=== PATIENT | female | born 1970 | race American Indian/Alaskan Native ===

== ENCOUNTER 2018-02-28 19:19 | Emergency (ER) | payer BC, OTHER ==
[2018-02-28] MEDS ORDERED: NACL 0.9% 1000 ML 1,000 ML IV ONE (19:48)
[2018-02-28 20:11] LABS: Bilirubin,Urine NEG (Negative); Blood,Urine MOD (Negative); Color,Urine Yellow (Yellow); Mucus,Urine 1+ /HPF; Protein,Urine <15 mg/dL mg/dL (Negative); Urobilinogen,Urine < 2.0 mg/dL (<2.0)
[2018-02-28 20:35] LABS: Mean Corpuscular HGB Conc 29 % (30-34); Platelet Count 393 K/mm3 (140-440); Red Blood Count 4.44 M/mm3 (3.65-5.03)
[2018-02-28 20:44] LABS: Alanine Aminotransferase 7 units/L (7-56); Albumin 4.5 g/dL (3.9-5); BUN/Creatinine Ratio 6; Blood Urea Nitrogen 3 mg/dL (7-17); Calcium 8.7 mg/dL (8.4-10.2); Hemolysis Index 9
[2018-02-28 20:50] LABS: Hematocrit 28.5 % (30.3-42.9); Hemoglobin 8.2 gm/dl (10.1-14.3); Mean Corpuscular Volume 64 fl (79-97); Red Cell Distribution Width 22.2 % (13.2-15.2)
--- NOTE | 2018-02-28 21:25 | Emergency Department Report ---
HPI - General Chief Complaint: Abdominal Pain Time Seen by Provider: 02/28/18 21:00 - HPI HPI: 47-year-old -Al[place]ian female presents to the emergency department from home with complaint of some right sided flank and right upper quadrant abdominal pain and some occasional right-sided chest pain that has been going on for the past 5-6 days. She denies any fever, nausea, vomiting, constipation, dysuria, vaginal bleeding or discharge, shortness of breath. The patient tried some natural remedies and taking a bath in Epsom salt. Patient says that the pains are improved from when they first started but they are still there. She has a past medical history of G6PD, hypothyroidism, previous pericarditis, right-sided lumpectomy that was benign and the patient was previously diabetic and had a history of hypertension but she has lost about 100-150 pounds. She moved here from [place] about 7 months ago and does not have a local primary care physician. No recent travel or sick contacts at home. ED Past Medical Hx - Past Medical History Hx Hypertension: Yes Hx Diabetes: Yes Additional medical history: Hypothyroidism, Pericarditis, G6PD - Surgical History Additional Surgical History: Right Lumpectomy, D&C, C-sections X 3 - Social History Smoking Status: Current Some Day Smoker Substance Use Type: None ED Review of Systems ROS: Stated complaint: RT SIDE PAIN Other details as noted in HPI Comment: All other systems reviewed and negative Constitutional: denies: chills, fever Eyes: denies: eye pain, vision change ENT: denies: ear pain, throat pain Respiratory: denies: cough, shortness of breath Cardiovascular: chest pain. denies: palpitations Gastrointestinal: abdominal pain. denies: nausea, vomiting Genitourinary: denies: dysuria, discharge Musculoskeletal: denies: back pain, arthralgia Skin: denies: rash, lesions Neurological: denies: headache, weakness Physical Exam - Physical Exam Vital Signs: Vital Signs 02/28/18 02/28/18 19:24 19:38 Temperature 98.5 F 98.5 F Pulse Rate 69 69 Respiratory 18 16 Rate Blood Pressure 142/56 142/56 O2 Sat by Pulse 100 100 Oximetry Physical Exam: GENERAL: The patient is well-developed well-nourished. HEENT: Normocephalic. Atraumatic. Patient has moist mucous membranes. EYES: Extraocular motions are intact. Pupils are equal and reactive to light bilaterally. NECK: Supple. Trachea is midline. CHEST/LUNGS: Clear to auscultation. There is no respiratory distress noted. HEART/CARDIOVASCULAR: Regular. There is no tachycardia. There is no obvious murmur. ABDOMEN: Abdomen is soft. Unable to reproduce right upper quadrant abdominal pain or flank pain to palpation. No guarding. Patient has normal bowel sounds. There is no abdominal distention. SKIN: Skin is warm and dry. NEURO: The patient is awake, alert, and oriented. The patient is cooperative. The patient has no focal neurologic deficits. The patient has normal speech. MUSCULOSKELETAL: There is no tenderness or deformity. There is no limitation range of motion. There is no evidence of acute injury. ED Course Vital Signs 02/28/18 02/28/18 19:24 19:38 Temperature 98.5 F 98.5 F Pulse Rate 69 69 Respiratory 18 16 Rate Blood Pressure 142/56 142/56 O2 Sat by Pulse 100 100 Oximetry ED Medical Decision Making - Lab Data Result diagrams: 02/28/18 20:09 02/28/18 20:09 - EKG Data -: EKG Interpreted by Me EKG shows normal: sinus rhythm, axis, intervals, QRS complexes (Q waves to the septal leads), ST-T waves Rate: normal - EKG Data When compared to previous EKG there are: previous EKG unavailable Interpretation: other (sinus rhythm, normal intervals, normal axis, Q waves to the septal leads) - Radiology Data Radiology results: report reviewed, image reviewed interpreted by me: Chest x-ray does not show any pneumothorax, pleural effusion, pneumonia or obvious focal consolidation. Abdominal x-ray shows nonspecific nonobstructive bowel gas. EXAM: US ABDOMEN COMPLETE HISTORY: Right flank pain, RUQ abd pain COMPARISON: Acute abdominal series from the same date. TECHNIQUE: Several real-time grayscale and color Doppler images were obtained. FINDINGS: Homogeneous echogenicity the visualized portions of the liver and pancreas. No shadowing gallstones. No gallbladder wall thickening. The common bile duct measures 3 millimeters within normal limits. Visualized aorta is normal in caliber. The right kidney measures 11.4 centimeters in length. Left kidney 12.4 centimeters. No hydronephrosis. Spleen normal in size measuring 9.7 centimeters in length. Portal vein and IVC are not included on the study. IMPRESSION: No acute abdominal organ abnormality. Transcribed By: LMA Dictated By: ANNALEE CHRISTENSEN MD Electronically Authenticated By: ANNALEE CHRISTENSEN MD Signed Date/Time: 02/28/18 2161 - Medical Decision Making The patient has been dealing with a 5-6 day history of RUQ abd and flank pain, but it sometimes will also go into the chest. EKG showed some septal q waves but otherwise no STEMI, dysrythmia, or any acute process. Patient's labs were unremarkable including a CBC, CMP, lipase, troponin, d-dimer and urinalysis. Chest x-ray did not show any focal consolidation, pneumothorax, pneumonia, pleur al effusion or any other acute process. Abdominal x-ray shows nonspecific nonobstructive bowel gas. An abdominal ultrasound was done that does not show any signs of cholelithiasis, cholecystitis, nephrolithiasis or pyelonephritis. Patient is low on the DIEGO score and heart score. The patient also had a negative stress test within the last year while up in [place]. I have not found any emergent intra-abdominal or pelvic conditions during her workup thus far. She also appears low suspicion for any cardiac event. Vital signs stable throughout her ED course. For these reasons patient appears safe for discharge home at this time. She will be given a referral for primary care and car diology. She will return to the ER with any worsening of her symptoms or any acute distress. - Differential Diagnosis cholelithiasis, cholecystitis, nephrolithiasis, pyelonephritis, PE Critical care attestation.: If time is entered above; I have spent that time in minutes in the direct care of this critically ill patient, excluding procedure time. ED Disposition Clinical Impression: Right upper quadrant abdominal pain, Right flank pain, Intermittent chest pain Anemia Qualifiers: Anemia type: unspecified type Qualified Code(s): D64.9 - Anemia, unspecified Disposition: DC- TO HOME OR SELFCARE Is pt being admited?: No Condition: Stable Instructions: Chest Pain (ED), Abdominal Pain (ED), Flank Pain (ED), Anemia (ED) Additional Instructions: Please follow up with a primary care physician as soon as possible. I am also giving you a referral for a local carbon grinder, Dr. Norris, to follow up regarding your previous and/or intermittent chest pain. Return to the emergency department with any worsening of your symptoms or any acute distress. Referrals: PRIMARY CARE,MD [Primary Care Provider] - 3-5 Days MARTINA NORRIS MD [Staff Physician] - 3-5 Days NGUYỄN GONZALEZ MD [Staff Physician] - 3-5 Days [facility] [Outside] - 3-5 Days Time of Disposition: 23:59 DIEGO score - Diego Score Age > 65: (0) No Aspirin use within the Past 7 Days: (0) No 3 or more CAD Risk Factors: (0) No 2 or more Angina events in past 24 hrs: (1) Yes Known CAD with more than 50% Stenosis: (0) No Elevated Cardiac Markers: (0) No ST Deviation Greater than 0.5mm: (0) No DIEGO Score: 1 Heart Score - HEART Score History: Slightly suspicious EKG: Normal Age: 45-65 Risk factors: 1-2 risk factors Troponin: < normal limit HEART Score: 2 - Critical Actions Critical Actions: 0-3 pts:0.9-1.7%risk of adverse cardiac event.Candidate for discharge
[2018-02-28 21:57] LABS: Total Cells Counted 100
[2018-02-28 21:58] LABS: Anisocytosis 1+; Eosinophils % (Manual) 0 % (0.0-4.3)
[2018-02-28 21:59] LABS: Hypochromasia 2+; Poikilocytosis Few
[2018-02-28 22:00] LABS: Ovalocytes Few
[2018-02-28 22:01] LABS: Platelet Estimate Consistent w Auto; Schistocytes Few; Target Cells Few
--- NOTE | 2018-02-28 22:13 | XRay Report ---
FINAL REPORT EXAM: XR ABD SERIES W CXR 1V HISTORY: Abd pain, CP COMPARISON: None available. FINDINGS:: Single frontal view of the chest demonstrates heart to be normal in size. Lungs are gross ly clear. No pneumothorax. Supine and upright AP views of the abdomen were obtained. No gross free ai r. Small amount of stool in the colon. Gas scattered within non dilated bowl loops. No gross patholog ic calcifications. Bony structures are grossly intact. IMPRESSION:: No grossly acute findings.
--- NOTE | 2018-02-28 23:44 | Ultrasound Report ---
FINAL REPORT EXAM: US ABDOMEN COMPLETE HISTORY: Right flank pain, RUQ abd pain COMPARISON: Acute abdominal series from the same date. TECHNIQUE: Several real-time grayscale and color Doppler images were obtained. FINDINGS: Homogeneous echogenicity the visualized portions of the liver and pancreas. No shadowing gallstones. No gallbladder wall thickening. The common bile duct measures 3 millimeters within normal limits. Visualized aorta is normal in caliber. The right kidney measures 11.4 centimeters in length. Left kid robinson 12.4 centimeters. No hydronephrosis. Spleen normal in size measuring 9.7 centimeters in length. Portal vein and IVC are not included on the study. IMPRESSION: No acute abdominal organ abnormality.
[2018-03-01 05:26] VITALS: BP 122/72
== END 2018-02-28 23:00 | disposition home or self-care (01) ==
LOC: ED 19:19
DX: R10.11 Right upper quadrant pain (principal); R07.89 Other chest pain; D64.9 Anemia, unspecified; I10 Essential (primary) hypertension; E11.9 Type 2 diabetes mellitus without complications; E03.9 Hypothyroidism, unspecified; F17.200 Nicotine dependence, unspecified, uncomplicated; Z88.2 Allergy status to sulfonamides
CPT/HCPCS: 36415; 74022; 76700; 80053; 81001; 83690; 84484; 84703; 85007; 85025; 85379; 93005; 93010

== ENCOUNTER 2018-03-09 01:22 | Emergency (ER) | payer SELFPAY ==
[2018-03-09 01:31] VITALS: BP 124/58
[2018-03-09 02:15] LABS: Bacteria,Urine 1+ /HPF (Negative); Bilirubin,Urine NEG (Negative); Blood,Urine SM (Negative); Color,Urine Yellow (Yellow); Mucus,Urine FEW /HPF; Urobilinogen,Urine < 2.0 mg/dL (<2.0)
--- NOTE | 2018-03-09 03:30 | Emergency Department Report ---
ED Female HPI - General Chief complaint: Abdominal Pain Stated complaint: LOWER ABD Time Seen by Provider: 03/09/18 03:25 Source: patient Mode of arrival: Ambulatory Limitations: No Limitations - History of Present Illness Initial comments: 47-year-old [place]an female comes in complaining of burning while urinating 2 days. Patient denies any vaginal discharge no fever no chills and nausea and vomiting. MD Complaint: dysuria -: days(s) (2) Severity: mild Improves with: none Worsens with: urination Are you Now?: No Last Menstrual Period: 02/22/18 EDC: 11/29/18 Associated Symptoms: dysuria - Related Data Sexually active: Yes Previous Rx's Medication Instructions Recorded Last Taken Type Nitrofurantoin Monohyd/M-Cryst 100 mg PO BID #20 capsule 03/09/18 Unknown Rx [Macrobid 100 mg Capsule] Allergies Allergy/AdvReac Type Severity Reaction Status Date / Time Sulfa (Sulfonamide Allergy Anaphylaxis Verified 02/28/18 19:48 Antibiotics) ED Review of Systems ROS: Stated complaint: LOWER ABD Other details as noted in HPI Comment: All other systems reviewed and negative Genitourinary: dysuria ED Past Medical Hx - Past Medical History Hx Hypertension: Yes Hx Diabetes: Yes Additional medical history: Hypothyroidism, Pericarditis, G6PD - Surgical History Additional Surgical History: Right Lumpectomy, D&C, C-sections X 3 - Social History Smoking Status: Current Some Day Smoker Substance Use Type: None - Medications Home Medications: Home Medications Medication Instructions Recorded Confirmed Last Taken Type Nitrofurantoin Monohyd/M-Cryst 100 mg PO BID #20 capsule 03/09/18 Unknown Rx [Macrobid 100 mg Capsule] ED Physical Exam - General Limitations: No Limitations General appearance: alert - Head Head exam: Present: atraumatic - Eye Eye exam: Present: EOMI - ENT ENT exam: Present: mucous membranes moist - GI/Abdominal GI/Abdominal exam: Present: soft, normal bowel sounds - Extremities Exam Extremities exam: Present: normal inspection - Back Exam Back exam: Present: normal inspection - Neurological Exam Neurological exam: Present: alert, oriented X3 - Skin Skin exam: Present: warm, dry, intact, normal color. Absent: rash ED Course Vital Signs 03/09/18 03/09/18 01:30 01:37 Temperature 98.3 F 98.3 F Pulse Rate 80 81 Respiratory 16 16 Rate Blood Pressure 124/58 124/58 O2 Sat by Pulse 100 100 Oximetry ED Medical Decision Making - Lab Data Lab Results 03/09/18 Range/Units 01:53 Urine Color Yellow (Yellow) Urine Turbidity Slightly-cloudy (Clear) Urine pH 8.0 H (5.0-7.0) Ur Specific [place] 1.016 (1.003-1.030) Urine Protein 100 mg/dl (Negative) mg/dL Urine Glucose (UA) Neg (Negative) mg/dL Urine Ketones Neg (Negative) mg/dL Urine Blood Sm (Negative) Urine Nitrite Neg (Negative) Urine Bilirubin Neg (Negative) Urine Urobilinogen < 2.0 (<2.0) mg/dL Ur Leukocyte Esterase Lg (Negative) Urine WBC (Auto) 176.0 H (0.0-6.0) /HPF Urine RBC (Auto) 59.0 (0.0-6.0) /HPF U Epithel Cells (Auto) < 1.0 (0-13.0) /HPF Urine Bacteria (Auto) 1+ (Negative) /HPF Ur Transition Epith Cell 1 /HPF Urine Mucus Few /HPF - Medical Decision Making Patient's been evaluated by this provider and fast. Patient appears to have a urinary tract infection. Discharge patient on Macrobid 100 mg by mouth twice a day for 10 days. Instructed patient increase her water intake. Discussed the patient follow-up the primary care provider for symptoms persist or gets worse. Critical care attestation.: If time is entered above; I have spent that time in minutes in the direct care of this critically ill patient, excluding procedure time. ED Disposition Clinical Impression: UTI (urinary tract infection) Disposition: - TO HOME OR SELFCARE Is pt being admited?: No Does the pt Need Aspirin: No Condition: Stable Instructions: Abdominal Pain (ED) Additional Instructions: Complete antibiotics as prescribed. Increase her water intake by 2-3 L daily. Follow-up with the primary care provider if her symptoms persist or gets worse. Prescriptions: Nitrofurantoin Monohyd/M-Cryst [Macrobid 100 mg Capsule] 100 mg PO BID #20 capsule Referrals: [facility] [Provider Group] - 3-5 Days
== END 2018-03-09 03:59 | disposition home or self-care (01) ==
LOC: ED 01:22
DX: N39.0 Urinary tract infection, site not specified (principal); I10 Essential (primary) hypertension; E11.9 Type 2 diabetes mellitus without complications; F17.200 Nicotine dependence, unspecified, uncomplicated; E03.9 Hypothyroidism, unspecified; Z88.2 Allergy status to sulfonamides
CPT/HCPCS: 81001; 99283

== ENCOUNTER 2018-06-28 00:09 | Emergency (ER) | payer OTHER ==
--- NOTE | 2018-06-28 01:06 | XRay Report ---
PROCEDURE: XR CHEST 1V AP TECHNIQUE: Chest radiograph single view. HISTORY: Chest Pain COMPARISONS: None . FINDINGS: Heart: Normal. Mediastinum/Vessels: Normal. Lungs/Pleural space: Normal. Bony thorax: No acute osseous abnormality. Life support devices: None. IMPRESSION: No acute cardiopulmonary abnormality. This document is electronically signed by Ilsa Mayers DO., Jun 28 2018 01:04:10 AM ET
[2018-06-28 01:14] LABS: Basophils % (Auto) 0.9 % (0.0-1.8); Eosinophils # (Auto) 0.1 K/mm3 (0.0-0.4); Eosinophils % (Auto) 1.8 % (0.0-4.3); Lymphocytes # (Auto) 1.8 K/mm3 (1.2-5.4); Lymphocytes % (Auto) 41.6 % (13.4-35.0); Mean Corpuscular HGB Conc 29 % (30-34); Monocytes # (Auto) 0.7 K/mm3 (0.0-0.8); Platelet Count 459 K/mm3 (140-440); Red Blood Count 4.75 M/mm3 (3.65-5.03)
[2018-06-28 01:15] LABS: Hematocrit 31.6 % (30.3-42.9)
[2018-06-28 01:16] LABS: Mean Corpuscular Volume 67 fl (79-97); Red Cell Distribution Width 20.4 % (13.2-15.2)
[2018-06-28 01:53] LABS: BUN/Creatinine Ratio 14; Blood Urea Nitrogen 7 mg/dL (7-17); Calcium 9.2 mg/dL (8.4-10.2); Hemolysis Index 0
--- NOTE | 2018-06-28 02:50 | Emergency Department Report ---
ED Chest Pain HPI - General Chief Complaint: Chest Pain Stated Complaint: CHEST PAIN/UPPER RIGHT SIDE PAIN Time Seen by Provider: 06/28/18 02:49 Source: patient, RN notes reviewed, old records reviewed Mode of arrival: Ambulatory Limitations: No Limitations - History of Present Illness Initial Comments: This is a 48-year-old female. The patient is not known to this provider previously. She reportedly has a history of thyroid disease, pericarditis, l umpectomy, and bilateral tubal ligation. She does not have a primary care doctor. She does not take oral contraceptives. She does not take aspirin. She presents to the emergency room with a complaint of 4 days intermittent chest discomfort. The discomfort is occasionally left-sided, central, right-sided. The discomfort does not radiate to the back, arms or neck. There is no vomiting, diaphoresis, or exertional shortness of breath. She endorses intermittent right-sided rib burning and discomfort. She indicates that it feels "deep." She denies posterior leg swelling, leg pain, or oral contraceptive use, recent surgeries. Of note, this patient presented to this emergency room in February of this year with similar symptoms. She had an extensive and thorough workup, including negative d-dimer, unremarkable abdominal ultrasound. In addition, she informed the provider at that time that she had a negative cardiac stress test in [place] and the year before. The patient currently does not have pain, and declines pain medication. She also endorses that she feels that she has a breast lump. This is on the left side. This is subacute. It is painless. MD Complaint: chest pain, other -: Gradual, days(s) Pain Location: substernal, left chest, right chest Pain Radiation: none Quality: aching Consistency: intermittent Improves With: nothing Worsens With: nothing re: denies: nausea, vomting, diaphoresis, dyspnea, sense of impending doom Treatments Prior to Arrival: none Aspirin use within the Past 7 Days: (0) No - Related Data Previous Rx's Medication Instructions Recorded Last Taken Type Nitrofurantoin Monohyd/M-Cryst 100 mg PO BID #20 capsule 03/09/18 Unknown Rx [Macrobid 100 mg Capsule] Allergies Allergy/AdvReac Type Severity Reaction Status Date / Time Sulfa (Sulfonamide Allergy Anaphylaxis Verified 02/28/18 19:48 Antibiotics) Heart Score - HEART Score History: Slightly suspicious EKG: Non-specific Age: 45-65 Risk factors: 1-2 risk factors Troponin: < normal limit HEART Score: 3 - Critical Actions Critical Actions: 0-3 pts:0.9-1.7%risk of adverse cardiac event.Candidate for discharge ED Review of Systems ROS: Stated complaint: CHEST PAIN/UPPER RIGHT SIDE PAIN Other details as noted in HPI Constitutional: denies: fever, malaise Eyes: denies: eye discharge ENT: denies: hearing loss Respiratory: denies: cough, shortness of breath Cardiovascular: chest pain Gastrointestinal: abdominal pain. denies: nausea, vomiting Genitourinary: denies: dysuria Musculoskeletal: back pain, arthralgia Skin: denies: lesions Neurological: weakness Psychiatric: anxiety ED Past Medical Hx - Past Medical History Hx Hypertension: Yes Hx Diabetes: Yes Additional medical history: Hypothyroidism, Pericarditis, G6PD - Surgical History Additional Surgical History: Right Lumpectomy, D&C, C-sections X 3 - Social History Smoking Status: Current Some Day Smoker Substance Use Type: None - Medications Home Medications: Home Medications Medication Instructions Recorded Confirmed Last Taken Type Nitrofurantoin Monohyd/M-Cryst 100 mg PO BID #20 capsule 03/09/18 Unknown Rx [Macrobid 100 mg Capsule] ED Physical Exam - General Limitations: No Limitations General appearance: alert, anxious - Head Head exam: Present: atraumatic, normocephalic - Eye Eye exam: Present: normal appearance, EOMI - ENT ENT exam: Present: normal exam, normal orophraynx, mucous membranes moist, normal external ear exam - Neck Neck exam: Present: normal inspection, full ROM. Absent: tenderness, meningismus - Respiratory Respiratory exam: Present: normal lung sounds bilaterally, chest wall tenderness, other (there is no breast tenderness. There are no vesicular lesions noted. No large breast masses noted. Chaperoned by nurse Marina Ayala). Absent: respiratory distress, wheezes, rales, rhonchi, stridor - Cardiovascular Cardiovascular Exam: Present: regular rate, normal rhythm, normal heart sounds. Absent: bradycardia, tachycardia, irregular rhythm, systolic murmur, diastolic murmur, rubs, gallop - GI/Abdominal GI/Abdominal exam: Present: soft, other (there is no right upper quadrant tenderness. There is a negative Alvarez sign.). Absent: distended, tenderness, guarding, rebound, rigid, pulsatile mass - Extremities Exam Extremities exam: Present: normal inspection, full ROM, other (2+ pulses noted in the bilateral upper, lower extremities. Compartments soft. No long bony tenderness. The pelvis is stable.). Absent: pedal edema, joint swelling, calf tenderness - Back Exam Back exam: Present: normal inspection, full ROM. Absent: tenderness, CVA tenderness (R), CVA tenderness (L), paraspinal tenderness, vertebral tenderness - Neurological Exam Neurological exam: Present: alert, oriented X3, normal gait, other (Extraocular movements intact. Tongue midline. No facial droop. Facial sensation intact to light touch in the V1, V2, V3 distribution bilaterally. 5 and 5 strength in 4 extremities.. Sensation is intact to light touch in 4 extremities.). Absent: motor sensory deficit - Psychiatric Psychiatric exam: Present: anxious - Skin Skin exam: Present: warm, dry, intact, normal color. Absent: rash ED Course Vital Signs 06/28/18 06/28/18 00:31 03:22 Temperature 98.0 F 98.2 F Pulse Rate 66 72 Respiratory 18 15 Rate Blood Pressure 140/45 Blood Pressure 139/85 [Left] O2 Sat by Pulse 100 Oximetry DIEGO score - Diego Score Age > 65: (0) No Aspirin use within the Past 7 Days: (0) No 3 or more CAD Risk Factors: (0) No 2 or more Angina events in past 24 hrs: (0) No Known CAD with more than 50% Stenosis: (0) No Elevated Cardiac Markers: (0) No ST Deviation Greater than 0.5mm: (0) No DIEGO Score: 0 ED Medical Decision Making - Lab Data Result diagrams: 06/28/18 00:52 06/28/18 00:52 Vital Signs 06/28/18 00:31 Temperature 98.0 F Pulse Rate 66 Respiratory 18 Rate Blood Pressure 140/45 O2 Sat by Pulse 100 Oximetry Lab Results 06/28/18 06/28/18 Range/Units 00:52 00:52 WBC 4.4 L (4.5-11.0) K/mm3 RBC 4.75 (3.65-5.03) M/mm3 Hgb 9.0 L (10.1-14.3) gm/dl Hct 31.6 (30.3-42.9) % MCV 67 L (79-97) fl MCH 19 L (28-32) pg MCHC 29 L (30-34) % RDW 20.4 H (13.2-15.2) % Plt Count 459 H (140-440) K/mm3 Lymph % (Auto) 41.6 H (13.4-35.0) % Kleberg % (Auto) 15.0 H (0.0-7.3) % Eos % (Auto) 1.8 (0.0-4.3) % Baso % (Auto) 0.9 (0.0-1.8) % Lymph # 1.8 (1.2-5.4) K/mm3 Kleberg # 0.7 (0.0-0.8) K/mm3 Eos # 0.1 (0.0-0.4) K/mm3 Baso # 0.0 (0.0-0.1) K/mm3 Seg Neutrophils % 40.7 (40.0-70.0) % Seg Neutrophils # 1.8 (1.8-7.7) K/mm3 Sodium 139 (137-145) mmol/L Potassium 3.9 (3.6-5.0) mmol/L Chloride 102.2 (98-107) mmol/L Carbon Dioxide 21 L (22-30) mmol/L Anion Gap 20 mmol/L BUN 7 (7-17) mg/dL Creatinine 0.5 L (0.7-1.2) mg/dL Estimated GFR > 60 ml/min BUN/Creatinine Ratio 14 % Glucose 82 (65-100) mg/dL Calcium 9.2 (8.4-10.2) mg/dL Troponin T < 0.010 (0.00-0.029) ng/mL Lab Results 06/28/18 06/28/18 06/28/18 Range/Units 00:52 00:52 03:35 WBC 4.4 L (4.5-11.0) K/mm3 RBC 4.75 (3.65-5.03) M/mm3 Hgb 9.0 L (10.1-14.3) gm/dl Hct 31.6 (30.3-42.9) % MCV 67 L (79-97) fl MCH 19 L (28-32) pg MCHC 29 L (30-34) % RDW 20.4 H (13.2-15.2) % Plt Count 459 H (140-440) K/mm3 Lymph % (Auto) 41.6 H (13.4-35.0) % Kleberg % (Auto) 15.0 H (0.0-7.3) % Eos % (Auto) 1.8 (0.0-4.3) % Baso % (Auto) 0.9 (0.0-1.8) % Lymph # 1.8 (1.2-5.4) K/mm3 Kleberg # 0.7 (0.0-0.8) K/mm3 Eos # 0.1 (0.0-0.4) K/mm3 Baso # 0.0 (0.0-0.1) K/mm3 Seg Neutrophils % 40.7 (40.0-70.0) % Seg Neutrophils # 1.8 (1.8-7.7) K/mm3 D-Dimer 205.51 (0-234) ng/mlDDU Sodium 139 (137-145) mmol/L Potassium 3.9 (3.6-5.0) mmol/L Chloride 102.2 (98-107) mmol/L Carbon Dioxide 21 L (22-30) mmol/L Anion Gap 20 mmol/L BUN 7 (7-17) mg/dL Creatinine 0.5 L (0.7-1.2) mg/dL Estimated GFR > 60 ml/min BUN/Creatinine Ratio 14 % Glucose 82 (65-100) mg/dL Calcium 9.2 (8.4-10.2) mg/dL Total Bilirubin (0.1-1.2) mg/dL Direct Bilirubin (0-0.2) mg/dL Indirect Bilirubin mg/dL AST (5-40) units/L ALT (7-56) units/L Alkaline Phosphatase (35-129) units/L Total Creatine Kinase (30-135) units/L Troponin T < 0.010 (0.00-0.029) ng/mL Total Protein (6.3-8.2) g/dL Albumin (3.9-5) g/dL Albumin/Globulin Ratio % 06/28/18 Range/Units 03:35 WBC (4.5-11.0) K/mm3 RBC (3.65-5.03) M/mm3 Hgb (10.1-14.3) gm/dl Hct (30.3-42.9) % MCV (79-97) fl MCH (28-32) pg MCHC (30-34) % RDW (13.2-15.2) % Plt Count (140-440) K/mm3 Lymph % (Auto) (13.4-35.0) % Kleberg % (Auto) (0.0-7.3) % Eos % (Auto) (0.0-4.3) % Baso % (Auto) (0.0-1.8) % Lymph # (1.2-5.4) K/mm3 Kleberg # (0.0-0.8) K/mm3 Eos # (0.0-0.4) K/mm3 Baso # (0.0-0.1) K/mm3 Seg Neutrophils % (40.0-70.0) % Seg Neutrophils # (1.8-7.7) K/mm3 D-Dimer (0-234) ng/mlDDU Sodium (137-145) mmol/L Potassium (3.6-5.0) mmol/L Chloride (98-107) mmol/L Carbon Dioxide (22-30) mmol/L Anion Gap mmol/L BUN (7-17) mg/dL Creatinine (0.7-1.2) mg/dL Estimated GFR ml/min BUN/Creatinine Ratio % Glucose (65-100) mg/dL Calcium (8.4-10.2) mg/dL Total Bilirubin 0.40 (0.1-1.2) mg/dL Direct Bilirubin < 0.2 (0-0.2) mg/dL Indirect Bilirubin 0.2 mg/dL AST 19 (5-40) units/L ALT 9 (7-56) units/L Alkaline Phosphatase 69 (35-129) units/L Total Creatine Kinase 84 (30-135) units/L Troponin T < 0.010 (0.00-0.029) ng/mL Total Protein 7.7 (6.3-8.2) g/dL Albumin 4.0 (3.9-5) g/dL Albumin/Globulin Ratio 1.1 % Vital Signs 06/28/18 06/28/18 00:31 03:22 Temperature 98.0 F 98.2 F Pulse Rate 66 72 Respiratory 18 15 Rate Blood Pressure 140/45 Blood Pressure 139/85 [Left] O2 Sat by Pulse 100 Oximetry - EKG Data -: EKG Interpreted by Tn EKG shows normal: sinus rhythm Rate: normal - EKG Data 06/28/18 04:46 Normal axis, normal intervals, poor R-wave progression, unremarkable EKG, not consistent with ST elevation myocardial infarction. EKG #2 appears to be unchanged from prior EKG. Neither EKG consistent with ST elevation myocardial infarction. - Radiology Data Radiology results: report reviewed, image reviewed Print Report Referring Physician: RAMIREZ CRUZ Patient Name: KOURTNEY SEQUEIRA Date of : 1970 Sex: Female Report Date: 2018-06-28 Report Status: Finalized Findings [facility] [address] [place] [address] XRay Report Signed Patient: KOURTNEY SEQUEIRA MR#: [id number] : 1970 Acct:[id number] Age/Sex: 48 / F ADM Date: 06/28/18 Loc: ED Attending Dr: Ordering Physician: RAMIREZ CRUZ MD Date of Service: 06/28/18 Procedure(s): XR chest 1V ap Accession Number(s): [id number] cc: RAMIREZ CRUZ MD Fluoro Time In Minutes: PROCEDURE: XR CHEST 1V AP TECHNIQUE: Chest radiograph single view. HISTORY: Chest Pain COMPARISONS: None . FINDINGS: Heart: Normal. Mediastinum/Vessels: Normal. Lungs/Pleural space: Normal. Bony thorax: No acute osseous abnormality. Life support devices: None. IMPRESSION: No acute cardiopulmonary abnormality. This document is electronically signed by Ilsa Mayers DO., Jun 28 2018 01:04:10 AM ET Transcribed By: [facility] Dictated By: ILSA MAYERS MD Electronically Authenticated By: ILSA MAYERS MD Signed Date/Time: 06/28/18 0106 - Medical Decision Making Differential diagnosis, including not limited to, GERD, gastritis, hiatal hernia, acute coronary syndrome, pulmonary embolus, pneumonia, transaminitis, hepatitis Assessment and plan: 48-year-old female, no pulmonary embolus or DVT risk factors, low risk by well's criteria, d-dimer negative, perc negative, with low risk chest pain for acute coronary syndrome/major adverse cardiac event. Objectively speaking, has had multiple negative troponins, EKG unchanged 2, liver tests unremarkable, and her presentation today appears to be similar to her prior presentation from February 2018. Patient is counseled that she is at low risk for major adverse cardiac event. The patient is further counseled that she will need to follow up with outpatient cardiology for evaluation for potential outpatient provocative testing. The patient can also follow up with an outpatient primary care doctor or breast specialists for her concern of left-sided breast mass. The patient declined pain medication in the emergency room. On reevaluation in her room, she is sleeping comfortable, and in no acute distress, and appears to be quite comfortable. Critical care attestation.: If time is entered above; I have spent that time in minutes in the direct care of this critically ill patient, excluding procedure time. ED Disposition Clinical Impression: History of chest pain Disposition: - TO HOME OR SELFCARE Is pt being admited?: No Does the pt Need Aspirin: No Condition: Stable Additional Instructions: Follow up with any of the listed cardiology groups within the next 3-5 days. Take aspirin, [id number], 325 mg, once daily. Follow up with a breast surgeon, or primary care doctor for breast mass within the next month. Return to the emergency room right away with new pain, worsened pain, migration of pain, projectile vomiting, change in mental status, confusion, inability to tolerate liquid feeds, new, worsening or different symptoms, or symptoms not present on the initial ER evaluation. Referrals: MARGOT GARCIA MD [Staff Physician] - 3-5 Days [facility] [Provider Group] - 3-5 Days [facility] [Provider Group] - 3-5 Days
[2018-06-28] MEDS ORDERED: CARAFATE PO ONE (03:22)
[2018-06-28] MEDS ORDERED: PEPCID PO ONE (03:22)
[2018-06-28 04:04] LABS: Alanine Aminotransferase 9 units/L (7-56)
[2018-06-28 04:05] LABS: Bilirubin,Direct < 0.2 mg/dL (0-0.2)
[2018-06-28 05:06] VITALS: BP 140/83
== END 2018-06-28 05:11 | disposition home or self-care (01) ==
LOC: ED 00:09
DX: R07.89 Other chest pain (principal); I10 Essential (primary) hypertension; E11.9 Type 2 diabetes mellitus without complications; E03.9 Hypothyroidism, unspecified; F17.200 Nicotine dependence, unspecified, uncomplicated; Z88.2 Allergy status to sulfonamides
CPT/HCPCS: 36415; 71045; 80048; 80076; 82550; 84484; 85025; 85379; 93005; 93010

== ENCOUNTER 2020-01-18 22:10 | Emergency (ER) | payer MEDICAID ==
--- NOTE | 2020-01-18 23:45 | XRay Report ---
CHEST 2 VIEWS INDICATION: Chest Pain. COMPARISON: 06/28/2018 FINDINGS: SUPPORT DEVICES: None. HEART: Within normal limits. LUNGS/PLEURA: No acute air space or interstitial disease. No pneumothorax. ADDITIONAL FINDINGS: None. IMPRESSION: 1. No acute findings. Signer Name: Nestor Uriarte MD Signed: 01/18/2020 11:41 PM Workstation Name: [id number]
[2020-01-19 00:39] LABS: Basophils % (Auto) 0.4 % (0.0-1.8); Eosinophils % (Auto) 0.9 % (0.0-4.3); Hematocrit 29.1 % (30.3-42.9); Hemoglobin 8.9 gm/dl (10.1-14.3); Lymphocytes # (Auto) 1.4 K/mm3 (1.2-5.4); Lymphocytes % (Auto) 38.4 % (13.4-35.0); Mean Corpuscular HGB Conc 31 % (30-34); Mean Corpuscular Volume 72 fl (79-97); Monocytes # (Auto) 0.5 K/mm3 (0.0-0.8); Monocytes % (Auto) 14.4 % (0.0-7.3); Platelet Count 397 K/mm3 (140-440); Red Blood Count 4.03 M/mm3 (3.65-5.03); Red Cell Distribution Width 21.5 % (13.2-15.2)
[2020-01-19 01:01] LABS: Blood Urea Nitrogen 4 mg/dL (7-17); Calcium 9.1 mg/dL (8.4-10.2); Hemolysis Index 3
[2020-01-19 01:02] LABS: BUN/Creatinine Ratio 10
[2020-01-19] MEDS ORDERED: FAMOTIDINE 20 MG TAB PO ONE (02:08)
[2020-01-19] MEDS ORDERED: ACETAMINOPHEN 325 MG TAB PO ONE (02:08)
--- NOTE | 2020-01-19 02:09 | Emergency Department Report ---
ED General Adult HPI - General Chief complaint: Chest Pain Stated complaint: CHEST PAIN SWOLLEN LEGS HEADACHE PUI?: No Time Seen by Provider: 01/19/20 01:48 Source: patient, RN notes reviewed, old records reviewed Mode of arrival: Ambulatory Limitations: No Limitations - History of Present Illness Initial comments: The patient was evaluated in the emergency department for symptoms described in the history of present illness. He/she was evaluated in the context of the global COVID-19 pandemic, which necessitated consideration that the patient might be at risk for infection with the virus that causes COVID-19. Institutional protocols and algorithms that pertain to the evaluation of patients at risk for COVID-19 are in a state of rapid change based on information released by regulatory bodies including the CDC and federal and state organizations. These policies and algorithms were followed during the patient's care in the emergency department. Please note that these policies, procedures and recommendations changed on a rapid basis. During the entire history and physical examination, I am chaperoned by nurse AMEYA FOURNIER Patient is a 49-year-old female. I have evaluated this patient in the past. The patient does not have a local primary care doctor. The patient has a past medical history of anemia. The patient presents to the ER with multiple complaints the patient states that she is not , and has not delivered given within the past 6 weeks.. The patient's first complaint is chest pain. The chest pain has been present intermittently for over a year and a half. The chest pain is central. It does not radiate to the back, arms or neck. There is no vomiting, diaphoresis, or exertional shortness of breath. No recent aspirin consumption. No travel, surgery, oral contraceptive use. Positive subjective bilateral lower extremity swelling, present for the past 3 days. Patient has had negative D-dimer x2 in the past. The patient's next complaint is nontraumatic bilateral lower extremity swelling. This extends from the proximal tibial regions to the feet. This has not happened to her in the past. Denies travel, surgery, oral contraceptive use, and immobilization. Reports recently consuming a lot of salt, and drinking a lot of water. However, she states that she is typically a vegan. Her next complaint is nontraumatic left bicep pain. This is present intermittently for a year. It is throbbing and aching, does not radiate anywhere, increases with palpation and range of motion, and decreases with rest. Her final complaint is headache. The headache is right-sided/temporal. The headache is not sudden or thunderclap in nature. The headache is not maximal in intensity. The headache is not the most intense headache of her life. The headache has been present for about a year and a half. No fever, neck pain, neck stiffness, loss of vision, and no focal extremity weakness and/or numbness. -: Gradual, days(s), month(s) Location: head, chest, left, right, upper extremity (Left upper extremity nontraumatic pain), lower extremity (Bilateral lower extremity swelling) Radiation: non-radiation Quality: other Consistency: other Improves with: other Worsens with: other Associated Symptoms: other - Related Data Previous Rx's Medication Instructions Recorded Last Taken Type Acetaminophen [Non-Aspirin Extra 500 mg PO Q6HR PRN #30 tablet 01/19/20 Unknown Rx Strength] Ferrous Sulfate [Ferrous Sulfate 324 mg PO TID #90 tablet.dr 01/19/20 Unknown Rx 324 MG] Ibuprofen [Motrin] 600 mg PO Q8H PRN #30 tablet 01/19/20 Unknown Rx Allergies Allergy/AdvReac Type Severity Reaction Status Date / Time Sulfa (Sulfonamide Allergy Anaphylaxis Verified 02/28/18 19:48 Antibiotics) ED Review of Systems ROS: Stated complaint: CHEST PAIN SWOLLEN LEGS HEADACHE Other details as noted in HPI Constitutional: denies: fever, malaise Eyes: denies: vision change ENT: denies: epistaxis Respiratory: denies: cough Cardiovascular: chest pain Gastrointestinal: denies: abdominal pain Genitourinary: denies: dysuria Musculoskeletal: arthralgia, myalgia Skin: denies: lesions Neurological: headache Psychiatric: anxiety Hematological/Lymphatic: denies: easy bleeding ED Past Medical Hx - Past Medical History Previous Medical History?: Yes Hx Hypertension: Yes Hx Diabetes: Yes (Gestational) Additional medical history: Hypothyroidism, Pericarditis, G6PD, preeclampsia - Surgical History Past Surgical History?: Yes Additional Surgical History: Right Lumpectomy, D&C, C-sections X 3 - Social History Smoking Status: Former Smoker Substance Use Type: Alcohol, Marijuana - Medications Home Medications: Home Medications Medication Instructions Recorded Confirmed Last Taken Type Acetaminophen [Non-Aspirin Extra 500 mg PO Q6HR PRN #30 tablet 01/19/20 Unknown Rx Strength] Ferrous Sulfate [Ferrous Sulfate 324 mg PO TID #90 tablet.dr 01/19/20 Unknown Rx 324 MG] Ibuprofen [Motrin] 600 mg PO Q8H PRN #30 tablet 01/19/20 Unknown Rx ED Physical Exam - General Limitations: No Limitations General appearance: alert, in no apparent distress, obese - Head Head exam: Present: atraumatic, normocephalic - Eye Eye exam: Present: normal appearance, EOMI. Absent: nystagmus - ENT ENT exam: Present: normal exam, normal orophraynx, mucous membranes moist, normal external ear exam - Neck Neck exam: Present: normal inspection, full ROM. Absent: tenderness, meningismus - Respiratory Respiratory exam: Present: normal lung sounds bilaterally. Absent: respiratory distress, wheezes, rales, rhonchi, stridor, decreased breath sounds - Cardiovascular Cardiovascular Exam: Present: regular rate, normal rhythm, normal heart sounds. Absent: bradycardia, tachycardia, irregular rhythm, systolic murmur, diastolic murmur, rubs, gallop - GI/Abdominal GI/Abdominal exam: Present: soft. Absent: distended, tenderness, guarding, rebound, rigid, pulsatile mass - Extremities Exam Extremities exam: Present: normal inspection, full ROM, pedal edema (1+ edema in the bilateral lower extremities), other (2+ pulses noted in the bilateral upper and lower extremities. There is no palpable cord. negative Homans sign. Muscular compartments are soft. The pelvis is stable.). Absent: calf tenderness - Back Exam Back exam: Present: normal inspection, full ROM. Absent: tenderness, CVA tenderness (R), CVA tenderness (L), paraspinal tenderness, vertebral tenderness - Neurological Exam Neurological exam: Present: alert, oriented X3, normal gait, other (No facial droop. Tongue midline. Extraocular movements intact bilaterally. Facial sensation intact to light touch in V1, V2, V3 distribution bilaterally. 5 and a 5 strength in 4 extremities. Sensation intact to light touch in 4 extremities.). Absent: motor sensory deficit - Psychiatric Psychiatric exam: Present: anxious - Skin Skin exam: Present: warm, dry, intact, normal color. Absent: rash ED Course Vital Signs 01/18/20 01/19/20 22:34 02:10 Temperature 99.5 F 99.1 F Pulse Rate 72 64 Respiratory 17 18 Rate Blood Pressure 143/93 Blood Pressure 148/62 [Left] O2 Sat by Pulse 100 100 Oximetry - Reevaluation(s) Reevaluation #1: 01/19/20 02:48 Differential diagnosis, including but not limited to: GERD, gastritis, hiatal hernia, pneumonia, dependent edema, renal insufficiency, hepatic insufficiency, DVT, pulmonary embolism, migraine headache, tension headache, cluster headache, left bicep pain, strain Assessment and plan: 49-year-old female with multiple complaints. Complaint #1, chest pain. I evaluated this patient for similar chest pain complaint in June 2018. Patient at low risk for major adverse cardiac event as per heart score. EKG morphologically unchanged when compared to prior. Not currently tachycardic, tachypneic or hypoxic, PERC negative, with no pulmonary embolism or DVT risk factors. Has had negative D-dimer in the past. Patient low risk for Wells criteria for DVT as well. Check D-dimer to further risk ratified for DVT, pulmonary embolism. As per this institutions policy, procedures and protocol, patient's information is transmitted to [facility] cardiology, to complete outpatient cardiac risk ratification. Complaint #2, lower extremity swelling. Has minimal lower extremity swelling on my exam. Lungs are clear. This is likely dependent edema. Renal function within normal limits. Check D-dimer, liver panel. Patient counseled that she may restrict salt intake, and purchase [id number] compression stockings. Complaint #3, left upper extremity pain. Has no significant tenderness in her left upper extremity, no redness, pus, streaking, full range of motion, and is neurovascularly intact. Rest, ice, compression, elevation therapy, alternate [id number] Tylenol and Motrin. Examination not consistent with cellulitis, fracture, compartment syndrome, or upper extremity DVT. Complaint #4, headache, present for over a year and a half. GCS of 15. NIH score 0. Symptomatic and supportive care. Outpatient follow-up. Microcytic anemia is chronic. Please note that AMEYA Marinelli was present during my entire evaluation. 01/19/20 02:52 01/19/20 05:18 Laboratory studies fairly unremarkable, D-dimer was elevated. CT scan of the chest was negative for acute findings. Lower extremity DVT study reportedly negative as per research food technologist. Vital signs have been stable for hours. Patient's contact information is transmitted to [facility], where she may complete her cardiac or stratification. Reevaluation #2: 01/19/20 05:36 radioisotope technologist states prelim report for lower extremity DVT study negative ED Medical Decision Making - Lab Data Result diagrams: 01/19/20 00:10 01/19/20 00:10 Vital Signs 01/18/20 01/19/20 22:34 02:10 Temperature 99.5 F 99.1 F Pulse Rate 72 64 Respiratory 17 18 Rate Blood Pressure 143/93 Blood Pressure 148/62 [Left] O2 Sat by Pulse 100 100 Oximetry Lab Results 01/19/20 01/19/20 Range/Units 00:10 00:10 WBC 3.7 L (4.5-11.0) K/mm3 RBC 4.03 (3.65-5.03) M/mm3 Hgb 8.9 L (10.1-14.3) gm/dl Hct 29.1 L (30.3-42.9) % MCV 72 L (79-97) fl MCH 22 L (28-32) pg MCHC 31 (30-34) % RDW 21.5 H (13.2-15.2) % Plt Count 397 (140-440) K/mm3 Lymph % (Auto) 38.4 H (13.4-35.0) % [place] % (Auto) 14.4 H (0.0-7.3) % Eos % (Auto) 0.9 (0.0-4.3) % Baso % (Auto) 0.4 (0.0-1.8) % Lymph # (Auto) 1.4 (1.2-5.4) K/mm3 [place] # (Auto) 0.5 (0.0-0.8) K/mm3 Eos # (Auto) 0.0 (0.0-0.4) K/mm3 Baso # (Auto) 0.0 (0.0-0.1) K/mm3 Seg Neutrophils % 45.9 (40.0-70.0) % Seg Neutrophils # 1.7 L (1.8-7.7) K/mm3 Sodium 138 (137-145) mmol/L Potassium 4.0 (3.6-5.0) mmol/L Chloride 105.2 (98-107) mmol/L Carbon Dioxide 21 L (22-30) mmol/L Anion Gap 16 mmol/L BUN 4 L (7-17) mg/dL Creatinine 0.4 L (0.6-1.2) mg/dL Estimated GFR > 60 ml/min BUN/Creatinine Ratio 10 % Glucose 68 (65-100) mg/dL Calcium 9.1 (8.4-10.2) mg/dL Troponin T < 0.010 (0.00-0.029) ng/mL NT-Pro-B Natriuret Pep 38.64 (0-450) pg/mL - EKG Data -: EKG Interpreted by Me EKG shows normal: sinus rhythm Rate: normal - EKG Data Interpretation: unchanged when compared t 01/19/20 02:53 EKG #1 shows sinus rhythm, 73 bpm, normal axis, normal intervals, poor R wave progression, T wave inversion V2. Abnormal EKG. Unchanged from prior EKG from June 2018. EKG #2 is unchanged from prior EKGs. - Radiology Data Radiology results: pending, report reviewed, image reviewed Print Report Referring Physician: RAMIREZ CRUZ Patient Name: KOURTNEY SEQUEIRA Date of : 1970 Sex: Female Report Date: 2020-01-18 Report Status: Finalized Findings [facility] [address] [place] [address] XRay Report Signed Patient: KOURTNEY SEQUEIRA MR#: [id number] : 1970 Acct:[id number] Age/Sex: 49 / F ADM Date: 01/18/20 Loc: ED Attending Dr: Ordering Physician: RAMIREZ CRUZ MD Date of Service: 01/18/20 Procedure(s): XR chest 1V ap Accession Number(s): [id number] cc: RAMIREZ CRUZ MD Fluoro Time In Minutes: CHEST 2 VIEWS INDICATION: Chest Pain. COMPARISON: 06/28/2018 FINDINGS: SUPPORT DEVICES: None. HEART: Within normal limits. LUNGS/PLEURA: No acute air space or interstitial disease. No pneumothorax. ADDITIONAL FINDINGS: None. IMPRESSION: 1. No acute findings. Signer Name: Nestor Uriarte MD Signed: 01/18/2020 11:41 PM Workstation Name: [id number] Transcribed By: TONI Dictated By: Nestor Uriarte MD Electronically Authenticated By: Nestor Uriarte MD Signed Date/Time: 01/18/202340 DD/ 40 TD/TT: CTA chest with contrast INDICATION : Pt complains of chest pain, lower ext swelling, elevated D-dimer. TECHNIQUE: Axial imaging performed through the chest, with contrast bolus timing set to maximize opacification of the pulmonary arteries. 3-plane MIP reformatted images were obtained. All CT scans at this location are performed using CT dose reduction for ALARA by means of automated exposure control. 100 mL of intravenous contrast administered. COMPARISON: Chest x-ray from yesterday FINDINGS: Bolus: Contrast bolus timing is adequate. PTE: No filling defect is present to suggest PTE. Mediastinum: Heart and great vessels appear normal. No pathologic mediastinal adenopathy. Lungs: Lungs are clear. Upper abdomen: Limited imaging of the upper abdomen shows nothing acute. Bones: Degenerative changes in the spine with nothing acute. IMPRESSION: Negative for PTE. Clear lungs. Signer Name: Nestor Uriarte MD Signed: 01/19/2020 4:08 AM Workstation Name: [id number] Critical care attestation.: If time is entered above; I have spent that time in minutes in the direct care of this critically ill patient, excluding procedure time. ED Disposition Clinical Impression: Anemia, Chest pain, Swelling of lower extremity, Left arm pain, History of headache Disposition: -01 TO HOME OR SELFCARE Is pt being admited?: No Does the pt Need Aspirin: No Condition: Stable Instructions: Chest Pain (ED) Additional Instructions: Recommend that the patient follow-up with a school transportation supervisor within the next 3 to 5 days for complaint of chest pain. For the patient's convenience, her contact us facesheet was transmitted to [facility] cardiology, however, we do recommend that the patient also reach out to the cardiology group to arrange close outpatient follow-up. For lower extremity swelling, recommend that patient purchase compression stockings [id number], to assist with lower extremity swelling. Avoid consumption of excessive salt. Take the pain medications as needed and directed minimize/avoid consumption of heavy and/or spicy food. . Recommend follow-up with a primary care doctor within the next 2 weeks. Iron sulfate may cause black stool, tarry stool, constipation and abdominal cramping. Please return to the emergency room right away with new pain, worsened pain, migration of pain, projectile vomiting, change in mental status, confusion, inability to tolerate liquid feeds, new, worsened or different symptoms not present on the initial emergency room evaluation. Prescriptions: Ferrous Sulfate [Ferrous Sulfate 324 MG] 324 mg PO TID #90 tablet. Ibuprofen [Motrin] 600 mg PO Q8H PRN #30 tablet PRN Reason: Pain Acetaminophen [Non-Aspirin Extra Strength] 500 mg PO Q6HR PRN #30 tablet PRN Reason: Pain , Severe (7-10) Referrals: DRAGAN ALDRIDGE MD [Staff Physician] - 3-5 Days [facility] [Provider Group] - 3-5 Days
[2020-01-19 03:14] LABS: Alanine Aminotransferase 9 units/L (7-56); Albumin 4.4 g/dL (3.9-5)
[2020-01-19 03:24] LABS: Bilirubin,Direct < 0.2 mg/dL (0-0.2)
--- NOTE | 2020-01-19 05:13 | Cat Scan Report ---
CTA chest with contrast INDICATION : Pt complains of chest pain, lower ext swelling, elevated D-dimer. TECHNIQUE: Axial imaging performed through the chest, with contrast bolus timing set to maximize opa cification of the pulmonary arteries. 3-plane MIP reformatted images were obtained. All CT scans at this location are performed using CT dose reduction for ALARA by means of automated exposure control. 100 mL of intravenous contrast administered. COMPARISON: Chest x-ray from yesterday FINDINGS: Bolus: Contrast bolus timing is adequate. PTE: No filling defect is present to suggest PTE. Mediastinum: Heart and great vessels appear normal. No pathologic mediastinal adenopathy. Lungs: Lungs are clear. Upper abdomen: Limited imaging of the upper abdomen shows nothing acute. Bones: Degenerative changes in the spine with nothing acute. IMPRESSION: Negative for PTE. Clear lungs. Signer Name: Nestor Uriarte MD Signed: 01/19/2020 5:08 AM Workstation Name: [id number]
--- NOTE | 2020-01-19 05:42 | Vascular Lab Report ---
DUPLEX DOPPLER LOWER EXTREMITY VEINS, BILATERAL INDICATION: lower ext swelling. TECHNIQUE: Duplex doppler imaging was performed through the veins of both lower extremities using venous sabina laurie and other maneuvers. COMPARISON: No relevant prior imaging study available. FINDINGS: Right Common femoral vein: Negative. Right Superficial femoral vein: Negative. Right Popliteal vein: Negative. Right Calf veins: Negative. Left Common femoral vein: Negative. Left Superficial femoral vein: Negative. Left Popliteal vein: Negative. Left Calf veins: Negative. Additional findings: None.. IMPRESSION: 1. No sonographic evidence for DVT in either lower extremity. Signer Name: Nestor Uriarte MD Signed: 01/19/2020 5:37 AM Workstation Name: [id number]
[2020-01-19 05:49] VITALS: BP 165/90
== END 2020-01-19 05:45 | disposition home or self-care (01) ==
LOC: ED 22:10
DX: D64.9 Anemia, unspecified (principal); R07.9 Chest pain, unspecified; M79.602 Pain in left arm; M79.89 Other specified soft tissue disorders; I10 Essential (primary) hypertension; E11.9 Type 2 diabetes mellitus without complications; E03.9 Hypothyroidism, unspecified; F12.90 Cannabis use, unspecified, uncomplicated; Z87.891 Personal history of nicotine dependence; Z88.2 Allergy status to sulfonamides; Z79.899 Other long term (current) drug therapy; Z98.890 Other specified postprocedural states; Z87.898 Personal history of other specified conditions
CPT/HCPCS: 36415; 71045; 71275; 80048; 80076; 82550; 83735; 83880; 84484; 85025; 85379; 93005; 93970; 99285; Q9967